=== PATIENT | male | born 1980 | race Caucasian/White ===

== ENCOUNTER 2016-09-21 15:33 | Emergency (ER) | payer MEDICAID, OTHER ==
[~2016-09-21] VITALS: Ht 175.3 cm; Wt 80.6 kg
[2016-09-21 15:40] VITALS: BP 103/79; PULSE 100; RESP 18; TEMP 99.1; O2SAT 99
[2016-09-21] MEDS ORDERED: LIDOCAINE 1%/EPINEPHrine 1:100,000 SOLN 20 ML VIAL INFIL ONE (16:45)
--- NOTE | 2016-09-21 16:51 | PD ---
HPI . Painful right elbow lesion Chief Complaint: Skin Problem Time Seen by Provider: 16:42 Travel History International Travel<30 days: No Contact w/Intl Traveler<30days: No Traveled to known affect area: No History of Present Illness HPI Patient reports a painful right elbow lesion for about a month. He states that the only thing different about it stated that brought him to the emergency department was that he had today off. He states that it will intermittently drain purulent material and get better for a few days. Then it will swell up and drain again. He denies any associated fevers. He denies any associated redness or warmth. PFSH Past Surgical History Tonsillectomy: Yes Social History Alcohol Use: No Tobacco Use: Yes (1PPD) Substance Use: No Allergies-Medications (Allergen,Severity, Reaction): Coded Allergies: No Known Allergies (Unverified , 09/21/16) Reported Meds & Prescriptions Reported Meds & Active Scripts Active No Active Prescriptions or Reported Medications Review of Systems Except as stated in HPI: all other systems reviewed are Neg General / Constitutional: No: Fever, Chills Skin: Positive Lesions Physical Exam Narrative GENERAL: Healthy-appearing young man in no acute distress SKIN: Warm and dry. He has some firm, raised, indurated lesions on the right elbow. There is a cluster of 2 or 3 lesions. The overlying skin is not red or hot. There is no fluctuance. HEAD: Atraumatic. Normocephalic. EYES: Pupils equal and round. ENT: No nasal bleeding or discharge. NECK: Trachea midline. CARDIOVASCULAR: Regular rate and rhythm. RESPIRATORY: No accessory muscle use. MUSCULOSKELETAL: No obvious deformities. No edema. NEUROLOGICAL: Awake and alert. No obvious cranial nerve deficits. Motor grossly within normal limits. Normal speech. PSYCHIATRIC: Appropriate mood and affect; insight and judgment normal. Data Data Last Documented VS Vital Signs Date Time Temp Pulse Resp B/P Pulse Ox O2 Delivery O2 Flow Rate FiO2 09/21/16 15:40 99.1 100 18 103/79 99 Orders Lidocai-Epi 1%-1:100,000 Inj (Xylocaine- (09/21/16 16:45) MDM Medical Decision Making Medical Screen Exam Complete: Yes Emergency Medical Condition: Yes Differential Diagnosis Differential diagnosis includes but is not limited to skin wart, abscess, cyst Narrative Course Patient presents with a lesion on his right elbow for a month. He is requesting that I excise it. Procedures Procedure Narrative EXCISION OF SKIN LESION: The area was prepped with Betadine. The area was infiltrated with 3 cc of 1% lidocaine with epi. The lesions were then excised with sharp dissection using a #11 blade and forceps. I incised the center of the area to explore for possible pus pocket. No pus pocket was found. Patient tolerated the procedure well. Diagnosis Primary Impression: Skin lesion of right upper extremity Additional Instructions: Clean the wound twice daily with soap and water. Apply a thin layer of Neosporin ointment after you wash it. Seek care for redness, drainage, warmth, unusual pain. Scripts No Active Prescriptions or Reported Meds Disposition: 01 DISCHARGE HOME Condition: Stable Amanda Robertson MD Sep 21, 2016 16:50
[2016-09-21] MEDS ORDERED: NEOMYCIN/POLYMYXIN/BACITRACIN OINT 15 GM TUBE TOPICAL ONE (17:15)
== END 2016-09-21 17:15 | disposition home or self-care (01) ==
LOC: PHEFT 15:33
DX: L98.9 Disorder of the skin and subcutaneous tissue, unspecified (principal)
CPT/HCPCS: 11400